=== PATIENT | female | born 1955 | race Caucasian/White ===

== ENCOUNTER 2022-09-06 09:39 | Day surgery (SDC) | payer OTHER ==
[~2022-09-06 09:39] MED LIST: Midazolam 1 MG/ML 2 ML SDV ONE; Propofol 200 MG/20 ML SDV ONE; fentaNYL 50 MCG/ML SDV ONE
[2022-09-06] MEDS ORDERED: Lactated Ringers 1,000 ML IV SCH (10:30)
[2022-09-06 12:46] VITALS: BP 157/63; PULSE 47
== END 2022-09-06 12:54 | disposition home or self-care (01) ==
LOC: JP.SDS 09:39
PROVIDERS: ATTEND Student in an Organized Health Care Education/Training Program
DX: Z12.11 Encounter for screening for malignant neoplasm of colon (principal); K57.30 Diverticulosis of large intestine without perforation or abscess without bleeding; K64.8 Other hemorrhoids
CPT/HCPCS: J2250; J2704; J3010; J7120

== ENCOUNTER 2023-12-12 08:21 | Day surgery (SDC) | payer OTHER ==
[2023-12-12] MEDS: Acetaminophen 500 MG Tab PO ONE (09:11)
[2023-12-12] MEDS: Lactated Ringers 1,000 ML IV SCH (09:12)
[2023-12-12] MEDS: ceFAZolin 2 GM in Premix Bag 1 BAG IV ONE (11:20)
[2023-12-12] MEDS ORDERED: Propofol 200 MG/20 ML SDV ONE (11:52)
[2023-12-12] MEDS: Lidocaine 1% with EPINEPHrine 1:100,000 50 ML MDV ONE (11:56)
[2023-12-12] MEDS: Bupivacaine 0.5% 50 ML MDV ONE (11:56)
[2023-12-12 14:30] VITALS: BP 137/65; PULSE 70
== END 2023-12-12 13:30 | disposition home or self-care (01) ==
LOC: JP.SDS 08:21
PROVIDERS: ATTEND Student in an Organized Health Care Education/Training Program
DX: D05.11 Intraductal carcinoma in situ of right breast (principal); I10 Essential (primary) hypertension
CPT/HCPCS: 36561; 76000; A9270; C1788; J0690; J1642; J2250; J2704; J3010; J3490; J7120